=== PATIENT | male | born 1965 | race Caucasian/White ===

== ENCOUNTER 2016-11-28 12:49 | Emergency (ER) | payer OTHER ==
[~2016-11-28 12:49] MED LIST: Z.0.NO CURRENT MEDS
[2016-11-28 12:54] VITALS: BP 111/79; PULSE 86; RESP 20; TEMP 98.2; O2SAT 96
[2016-11-28] MEDS ORDERED: KETOROLAC TROMETHAMINE 60 MG/2 ML (IM) VIAL IM ONE (13:30)
--- NOTE | 2016-11-28 13:44 | PD ---
HPI Chief Complaint: Back/ Neck Pain or Injury Time Seen by Provider: 13:15 Travel History International Travel<30 days: No Contact w/Intl Traveler<30days: No Traveled to known affect area: No History of Present Illness HPI 51-year-old male presents to the emergency room for evaluation of low back pain radiating to the right for the past week. States he woke up with a stiff back 1 week ago and throughout the day pain progressively worsened. Denies any trauma or injury. He had been applying heat without any relief in symptoms. After about 4 days, his friend recommended ice which seemed to improve his pain. States he felt bilateral anterior thigh paresthesias for 1 day but after using ice, he regained feeling and has not had problems since. States he has been taking his horse's Robaxin, unknown dose, for the past 2 days which seems to be improving his symptoms mildly as he is now able to walk with antalgic gait and work. He has taken Aleve 1 time but no other pain medications. Pain occurs with certain range of motion such as getting in and out of his truck. For those episodes, he developed severe, sharp, stabbing, 10/10 pain that only lasts a few moments. Otherwise his pain is well controlled. He complains of no pain while sitting in the emergency room. Patient has history of lumbar fractures from a work injury and 1993 and has not seen a neurosurgeon or had an MRI of his spine since 1995. Denies IV drug use, weight loss, fevers, chills, abdominal pain, lightheadedness, saddle anesthesia, loss of bowel or bladder control. PFSH Past Medical History Diminished Hearing: No GERD: Yes (COLONOSCOPY WITH EGD IN 2005: GASTRITIS AND BENIGN COLON POLYP) Immunizations Current: No Tetanus Vaccination: Unknown Influenza Vaccination: No Past Surgical History Cholecystectomy: Yes Social History Alcohol Use: Yes (2 daily) Tobacco Use: No Substance Use: No Allergies-Medications (Allergen,Severity, Reaction): Coded Allergies: No Known Allergies (Verified , 11/28/16) Reported Meds & Prescriptions Reported Meds & Active Scripts Active Ibuprofen 600 Mg Tab 600 Mg PO Q8H PRN Robaxin (Methocarbamol) 750 Mg Tab 750 Mg PO Q8HR Review of Systems Except as stated in HPI: all other systems reviewed are Neg Physical Exam Narrative GENERAL: Well-nourished, well-developed male in no acute distress. Afebrile. Ambulatory. Able to sit up and lay down on bed. SKIN: Focused skin assessment warm/dry. No erythema or ecchymosis. HEAD: Normocephalic. EYES: No scleral icterus. No injection or drainage. NECK: Supple, trachea midline. No JVD or lymphadenopathy. CARDIOVASCULAR: Regular rate and rhythm without murmurs, gallops, or rubs. RESPIRATORY: Breath sounds equal bilaterally. No accessory muscle use. GASTROINTESTINAL: Abdomen soft, non-tender. MUSCULOSKELETAL: No cyanosis, or edema. BACK: No significant midline tenderness. No step-off or obvious deformity. No CVA tenderness. No rash. 2+ patellar and Achilles reflexes are equal bilaterally. Strength 5/5 and equal in lower extremities. No CVA tenderness. Data Data Last Documented VS Vital Signs Date Time Temp Pulse Resp B/P Pulse Ox O2 Delivery O2 Flow Rate FiO2 11/28/16 15:36 81 18 134/78 99 11/28/16 12:[address] Lumb Spine W/O Contrast (11/28/16 ) Ketorolac Inj (Toradol Inj) (11/28/16 13:30) MDM Medical Decision Making Medical Screen Exam Complete: Yes Emergency Medical Condition: Yes Medical Record Reviewed: Yes Differential Diagnosis Muscle strain, muscle spasm, occult spinal fracture, degenerative disc disease Narrative Course 51-year-old male presents to the emergency room for evaluation of low back pain for the past week without any known trauma or injury. Patient has history of low back fractures many years ago. Pain is exacerbated with certain range of motion. No focal neurological deficits. Patient is ambulatory. No midline tenderness or step-off deformity. 5/5 strength and 2+ Achilles and patellar reflexes are equal in bilateral lower extremities. No CVA tenderness. Abdomen soft, nontender. Vital signs stable. Patient resting comfortably. Denies pain when sitting up in bed. Patient was offered Toradol but declined. Given history of previous fractures and reported transient paresthesias, CT of the lumbar spine is ordered. CT is negative for any acute abnormality but shows mild to moderate spinal stenosis. Patient was informed of results and discharged with prescriptions for ibuprofen and Robaxin. Told to follow-up with a primary care physician for outpatient MRI or return for worsening symptoms. He understands and agrees to plan. Diagnosis Primary Impression: Lumbar spinal stenosis Referrals: Primary Care Physician Patient Instructions: General Instructions, Lumbar Spinal Stenosis (ED) Additional Instructions: Rest and drink plenty of fluids. Take Tylenol as directed, as needed for pain. Take Robaxin as directed, as needed for pain. Apply ice to the affected area for 20 minutes at a time, as needed for pain and swelling. Follow-up with a primary care physician. Return to the emergency room for worsening symptoms. Med/Other Pt SpecificInfo: Prescription(s) given Scripts Ibuprofen 600 Mg [id number] Mg PO Q8H PRN (PAIN) #15 TAB Ref 0 Prov:Amberly Tovar MD 11/28/16 Methocarbamol (Robaxin)750 Mg [id number] Mg PO Q8HR #15 TAB Ref 0 Prov:Amberly Tovar MD 11/28/16 Disposition: 01 DISCHARGE HOME Condition: Stable Gabby Lim Nov 28, 2016 13:44
--- NOTE | 2016-11-28 14:59 | RADRPT ---
EXAM DATE/TIME: 11/28/2016 14:10 [facility] COMPARISON: No previous studies available for comparison. INDICATIONS : Back pain for 7 days RADIATION DOSE: 36.02 CTDIvol (mGy) MEDICAL HISTORY : None SURGICAL HISTORY : Cholecystectomy. ENCOUNTER: Initial ACUITY: 1 week PAIN SCALE: 0/10 LOCATION: Bilateral lower back. TECHNIQUE: Volumetric scanning of the lumbar spine was performed. Multiplanar reconstructions in the sagittal, coronal and oblique axial planes were performed. Using automated exposure control and adjustment of the mA and/or kV according to patient size, radiation dose was kept as low as reasonably achievable t o obtain optimal diagnostic quality images. DICOM format image data is available electronically for review and comparison. FINDINGS: The sagittal images demonstrate significant loss of disc height at L2-L3 and L5-S1 consistent with se soo degenerative disc disease at these levels. Discogenic endplate changes are also noted at these levels. There is no acute compression fracture or spondylolisthesis of the lumbar spine. Diffuse di sc bulges are noted at L2-L3, L3-L4, L4-L5 and L5-S1. Facet joint hypertrophy is noted bilaterally a t all levels within the lumbar spine. Moderate bilateral foraminal narrowing is noted at L2-L3, L3-L 4, L4-L5 and L5-S1. Mild spinal stenosis is noted at L2-L3 and L3-L4. T12-L1: There is no significant spinal stenosis, disc bulge or herniation. The bilateral neural foramina are patent. The facet joints and ligaments are unremarkable. L1-L2: There is a very minimal diffuse disc bulge as well as facet joint hypertrophy bilaterally resulting i n mild bilateral foraminal narrowing. No spinal stenosis or focal disc herniation is noted. L2-L3: There is mild circumferential spinal stenosis and moderate bilateral foraminal narrowing secondary to a combination of diffuse disc bulge, facet joint hypertrophy and ligamentous laxity. No focal disc herniation is noted. L3-L4: There is mild circumferential spinal stenosis and moderate bilateral foraminal narrowing secondary to a combination of diffuse disc bulge, facet joint hypertrophy and ligamentous laxity. No focal disc herniation is noted. L4-L5: There is a mild diffuse disc bulge as well as facet joint hypertrophy bilaterally resulting in modera te bilateral foraminal narrowing but no spinal stenosis. No focal disc herniation is noted. L5-S1: There is a mild diffuse osteophyte complex as well as facet joint hypertrophy bilaterally resulting i n moderate bilateral foraminal narrowing but no spinal stenosis. No focal disc herniation is noted. CONCLUSION: 1. Mild spinal stenosis and moderate bilateral foraminal narrowing at L2-L3 and L3-L4. 2. Moderate bilateral foraminal narrowing at L4-L5 and L5-S1 without spinal stenosis. 3. Mild bilateral foraminal narrowing at L1-L2 without spinal stenosis. 4. Severe disc space narrowing at L2-L3 and L5-S1 with discogenic endplate changes noted at these le vels. Pablo Grant MD on November 28, 2016 at 14:41 Board Certified Radiologist. This report was verified electronically.
[2016-11-28] MEDS ORDERED: IBUP-232 PO (15:11)
[2016-11-28] MEDS ORDERED: ROBA750T PO (15:11)
[2016-11-28 15:36] VITALS: BP 134/78
== END 2016-11-28 15:37 | disposition home or self-care (01) ==
LOC: PHED 12:49
DX: Z90.49 Acquired absence of other specified parts of digestive tract (principal)
CPT/HCPCS: 72131; 99285